=== PATIENT | male | born 1940 | race Caucasian/White ===

== ENCOUNTER 2023-11-30 12:22 | Inpatient (IN) | payer OTHER, MEDICARE ==
[~2023-11-30] VITALS: Ht 172.7 cm; Wt 79.4 kg
[2023-11-30 12:25] VITALS: BP_SYST 123; PULSE 81; RESP 20; TEMP 97.3; O2SAT 98
[2023-11-30] MEDS ORDERED: NACL 0.9% 1,000 ML IV ONE ×2 (13:30→15:00)
[2023-11-30 13:40] LABS: ABG O2 SAT% ESTIMATE 99.3 % (94.0-100.0); BLOOD GAS BASE EXCESS -2.2 mmol/L (-3.0-3.0); BLOOD GAS HCO3 19.8 mmol/L (21.0-27.0); BLOOD GAS PCO2 27.2 mmHg (32.0-45.0); BLOOD GAS PH 7.479 (7.350-7.450); BLOOD GAS PO2 174.1 mmHg (75.0-100.0)
[2023-11-30 13:41] LABS: ALLEN'S TEST POSITIVE (P)
[2023-11-30 14:04] LABS: BASOPHILS % (AUTO) 0.5 % (0.0-2.0); EOSINOPHILS % (AUTO) 0.1 % (0.0-4.0); HEMATOCRIT 48.2 % (36-54); HEMOGLOBIN 16.5 g/dL (14.0-18.0); LYMPHOCYTES # (AUTO) 0.7 K/uL (1.0-5.5); LYMPHOCYTES % (AUTO) 8.3 % (20.5-51.5); MEAN CORPUSCULAR HEMOGLOBIN 31 pg (27-31); MEAN CORPUSCULAR HGB CONC 34 % (32-36); MEAN CORPUSCULAR VOLUME 91 fL (79.0-98.0); MONOCYTES # (AUTO) 1.3 K/uL (0.0-1.0); MONOCYTES % (AUTO) 15.6 % (1.7-9.3); NEUTROPHILS # (AUTO) 6.3 K/uL (1.8-7.7); NEUTROPHILS % (AUTO) 75.5 % (40.0-70.0); PLATELET COUNT (AUTO) 162 K/uL (130-430); RED BLOOD CELL COUNT(AUTO) 5.29 MIL/uL (4.2-6.2); RED CELL DISTRIBUTION WIDTH 19.1 % (9.0-15.0); WHITE BLOOD COUNT (AUTO) 8.4 K/uL (4.8-10.8)
[2023-11-30 14:32] LABS: INFLUENZA TYPE A Negative (NEGATIVE); INFLUENZA TYPE B NEGATIVE (NEGATIVE)
[2023-11-30 14:33] LABS: ALANINE AMINOTRANSFERASE 93 U/L (12-78); ALBUMIN 3.9 g/dL (3.4-4.8); ANION GAP 21 (5-15); ASPARTATE AMINOTRANSFERASE 112 U/L (10-37); BILIRUBIN,DIRECT 2.2 mg/dL (0.0-0.3); CALCIUM 11.5 mg/dL (8.4-11.0); CARBON DIOXIDE 23 mmol/L (23-29); CHLORIDE 99 mmol/L (98-107); GLUCOSE 192 mg/dL (74-106); SODIUM SERUM 143 mmol/L (136-145); TOTAL BILIRUBIN 3.4 mg/dL (0.0-1.0); TOTAL PROTEIN, SERUM 8.8 g/dL (6.4-8.3)
[2023-11-30 14:36] LABS: CREATININE 7.72 mg/dL (0.55-1.30); POTASSIUM 5.8 mmol/L (3.5-5.1); UREA NITROGEN, BLOOD 124 mg/dL (8-21)
[2023-11-30] MEDS ORDERED: PIPERACILLIN/TAZO 3.375 GM in NS 50 ML IV ONE (14:45)
[2023-11-30] MEDS ORDERED: CALCIUM CHLORIDE 1 GM in NS 100 ML IV ONE (14:45)
[2023-11-30] MEDS ORDERED: DEXTROSE 50% JECT 50 ML DISP.SYRIN IVP ONE (14:45)
[2023-11-30] MEDS ORDERED: INSULIN REGULAR, HUMAN 10 UNITS/0.1 ML, 3 ML VIAL IVP ONE (14:45)
[2023-11-30] MEDS ORDERED: SODIUM BICARBONATE 8.4% JECT 50 MEQ/50 ML SYRINGE IVP ONE (14:45)
[2023-11-30] MEDS ORDERED: ONDANSETRON HCL 4 MG/2 ML VIAL IVP ONE (14:45)
[2023-11-30] MEDS ORDERED: PIPERACILLIN/TAZOBACTAM 3.375 GM/VIAL (ZOSYN) IV ONE (14:47)
[2023-11-30 14:48] LABS: INR 1.2 (0.80-1.20); PROTHROMBIN TIME 12.1 SECS (9.5-12.5)
[2023-11-30 16:03] LABS: BILIRUBIN,URINE 1+ (NEGATIVE); CLARITY/URINE CLEAR (CLEAR); GLUCOSE,URINE NEGATIVE (NEGATIVE); KETONES,URINE TRACE (NEGATIVE); LEUKOCYTE ESTERASE ,URINE NEGATIVE (NEGATIVE); NITRITE, URINE NEGATIVE (NEGATIVE); PROTEIN URINE TRACE (NEGATIVE)
[2023-11-30 16:15] LABS: BLOOD, URINE TRACE (NEGATIVE); COLOR,URINE AMBER (YELLOW)
[2023-11-30 16:16] LABS: BACTERIA,URINE RARE /HPF (None Seen); RBC,URINE 0-3 /HPF (0-3); WBC,URINE NONE SEEN /HPF (0-3)
[2023-11-30 16:17] LABS: MUCUS,URINE None Seen /LPF (None Seen)
[2023-11-30] MEDS ORDERED: SODIUM POLYSTYRENE SULFONATE 15 GM/60 ML UDBTL RC ONE (16:45)
[2023-11-30] MEDS ORDERED: 0.45% NACL 1,000 ML IV SCH (18:00)
[2023-11-30 18:27] VITALS: BP_SYST 106; PULSE 82; RESP 24; TEMP 98; O2SAT 98
[2023-11-30] MEDS ORDERED: HEPARIN 25,000 UNITS/D5W 250ML 250 ML IV PRN (19:00)
[2023-11-30] MEDS ORDERED: IPRATROPIUM/ALBUTEROL SULFATE 3 ML AMPUL.NEB (DUONEB) INH SCH (19:15)
[2023-11-30] MEDS ORDERED: NACL 0.9% 1,000 ML IV SCH (19:15)
[2023-11-30] MEDS ORDERED: SODIUM BICARBONATE 8.4% JECT 150 MEQ in D5W 1,000 ML IVP SCH (19:15)
== END 2023-11-30 19:27 | DRG 871 ==
LOC: SED 12:22 → STU 17:41
PROVIDERS: ADMIT Internal Medicine; ATTEND Internal Medicine
DX: A41.9 Sepsis, unspecified organism (principal); J18.9 Pneumonia, unspecified organism; J96.01 Acute respiratory failure with hypoxia; I13.0 Hypertensive heart and chronic kidney disease with heart failure and stage 1 through stage 4 chronic kidney disease, or unspecified chronic kidney disease; N17.9 Acute kidney failure, unspecified; G40.909 Epilepsy, unspecified, not intractable, without status epilepticus; E03.9 Hypothyroidism, unspecified; N18.9 Chronic kidney disease, unspecified; I48.91 Unspecified atrial fibrillation; E87.5 Hyperkalemia; I50.9 Heart failure, unspecified; Z79.899 Other long term (current) drug therapy; Z95.0 Presence of cardiac pacemaker
CPT/HCPCS: 36415; 36600; 71045; 80048; 80076; 81000; 81001; 81015; 82803; 83605; 83880; 84484; 85025; 85610-TC; 85730-TC; 87040; 87086; 93005; 99291; 99292; G0378; J1815; J2405; J2543